=== PATIENT | female | born 1975 | race Asian ===

== ENCOUNTER 2024-09-29 11:08 | Emergency (ER) | payer OTHER ==
[~2024-09-29] VITALS: Ht 160 cm; Wt 83.0 kg
[2024-09-29 11:29] VITALS: O2SAT 99
[2024-09-29 12:55] LABS: BASOPHILS % 0.4 % (0.0-2.0); EOSINOPHILS % 0.1 % (0.0-5.0); HEMATOCRIT. 38.5 % (36.0-48.0); HEMOGLOBIN. 12.4 g/dL (12.0-16.0); LYMPHOCYTES % 17.0 % (20.0-50.0); MEAN PLATELET VOLUME 8.7 fl (7.4-10.4); MONOCYTES % 3.7 % (2.0-8.0); NEUTROPHILS % 78.8 % (40.0-76.0); PLATELET 343 x1000/uL (130-400); RED BLOOD CELL COUNT 4.89 mill/uL (4.2-5.4); RED CELL DISTRIBUTION WIDTH 14.6 % (11.6-14.6)
[2024-09-29] MEDS: SODIUM CHLORIDE 0.9% 1,000 ML IV ONE (13:08)
[2024-09-29 13:09] LABS: CREATININE 0.8 mg/dL (0.6-1.0)
[2024-09-29 13:10] LABS: UREA NITROGEN BLOOD 9 mg/dL (9-23)
[2024-09-29] MEDS: MECLIZINE 25MG TABLET PO ONE (14:00)
[2024-09-29] MEDS: SODIUM CHLORIDE 0.9% (SEPSIS BOLUS) IV ONE (14:00)
[2024-09-29 14:25] LABS: HCG SCREEN INDETERMINATE
[2024-09-29] MEDS: CEFTRIAXONE 1GM/50ML 50 ML IV ONE (14:35)
[2024-09-29] MEDS ORDERED: CEFTRIAXONE 1GM/50ML 50 ML IV NR (14:45)
[2024-09-29 14:53] LABS: INR 1.0
[2024-09-29] MEDS: AZITHROMYCIN 500MG/250ML 250 ML IV ONE (14:56)
[2024-09-29] MEDS: MECLIZINE 25MG TABLET PO NR (14:57)
[2024-09-29] MEDS: ACETAMINOPHEN 325MG TABLET PO ONE (14:58)
[2024-09-29] MEDS: ONDANSETRON HCL 4MG/2ML INJ IV ONE (14:59)
[2024-09-29 15:06] LABS: CREATININE 0.6 mg/dL (0.6-1.0)
[2024-09-29 15:07] LABS: UREA NITROGEN BLOOD 9 mg/dL (9-23)
[2024-09-29 15:08] LABS: ASPARTATE AMINOTRANSFERASE 46 IU/L (<34)
[2024-09-29 15:09] LABS: BILIRUBIN DIRECT 0.1 mg/dL (<=3.0); BILIRUBIN TOTAL 0.5 mg/dL (0.1-1.0); PROTEIN TOTAL 7.8 g/dL (6.0-8.3); TROPONIN I HIGH SENSITIVITY < 4 ng/L (3.0-34)
[2024-09-29 15:43] LABS: CLARITY URINE CLEAR (CLEAR); COLOR URINE YELLOW (YELLOW); GLUCOSE URINE NEGATIVE (NEGATIVE); KETONES URINE NEGATIVE (NEGATIVE); LEUKOCYTE ESTERASE URINE NEGATIVE (NEGATIVE); NITRITE URINE NEGATIVE (NEGATIVE); OCCULT BLOOD URINE NEGATIVE (NEGATIVE); PH URINE 7.0 (4.5-8.0); PROTEIN URINE NEGATIVE (NEGATIVE); SPECIFIC GRAVITY URINE 1.004 (1.005-1.030); UROBILINOGEN URINE 0.2 E.U./dL (0.2-1.0)
[2024-09-29 15:47] LABS: UCG SCREEN NEGATIVE
[2024-09-29 15:48] LABS: UCG KIT EXPIRATION DATE 01-03-2027; UCG KIT LOT# 958452
[2024-09-29 20:56] VITALS: BP 132/84; PULSE 92; RESP 18; TEMP 36.5; O2SAT 98
== END 2024-09-29 21:13 | disposition home or self-care (01) ==
LOC: ER 11:08 → CMPBEDREQ 09-30 22:28
DX: O26.899 Other specified pregnancy related conditions, unspecified trimester (principal); R51.9 Headache, unspecified; R11.0 Nausea; I10 Essential (primary) hypertension; R10.2 Pelvic and perineal pain; R42 Dizziness and giddiness; Z3A.00 Weeks of gestation of pregnancy not specified; Z86.73 Personal history of transient ischemic attack (TIA), and cerebral infarction without residual deficits
CPT/HCPCS: 80076; 80048; 81003; 81025; 84703; 84702; 83880; 83605; 83690; 85025; 85610; 85730; 87040; 87086; 84484; 36415; 84145; 71045; 70450; 76830; 76856; 93005; 96368; 96361; 96365; 96375; 99285; J8597; J0456; J0696; J2405; J7030; Z7610 ×2